=== PATIENT | female | born 1995 | race Caucasian/White ===

== ENCOUNTER 2019-11-09 12:00 | Outpatient (CLI) | payer OTHER ==
[2019-11-09 21:05] LABS: CANDIDA GROUP DNA NEGATIVE (NEGATIVE); CANDIDA KRUSEI DNA NEGATIVE (NEGATIVE); TRICHOMONAS VAGINALIS DNA NEGATIVE (NEGATIVE)
== END 2019-11-09 23:59 | disposition home or self-care (01) ==
LOC: LAB.R 12:00
PROVIDERS: ATTEND Advanced Practice Midwife
DX: N76.0 Acute vaginitis (principal)
CPT/HCPCS: 87661; 87801

== ENCOUNTER 2019-12-20 10:59 | Outpatient (CLI) | payer OTHER ==
--- NOTE | 2019-12-20 14:08 | Ultrasound Report ---
PROCEDURE: OB Detailed Eval INDICATIONS: SCREENING FOR CHROMOSOMAL ANOMALIES OUTSIDE/PRIOR DATING DATA: Last menstrual period (LMP): 08/10/2019. LMP-based estimated date of delivery (MARY): 05/16/2020. First dating scan (date and location): 12/20/2019. Estimated date of delivery (MARY) from first dating scan: 05/14/2020. TECHNIQUE: Real-time scanning was performed of the fetus, with image documentation and biometric measurements. COMPARISON: Prior examination is currently not available for comparison. FINDINGS: General: A single living intrauterine gestation is present. Presentation: Vertex Placenta: Placental position is anterior, without previa. Amniotic fluid index: 13.1 cm, within normal limits for gestational age. Largest pocket 3.6 cm heart rate: 153 beats per minute. Maternal cervical canal: 4.2 cm long; normal length is 2.5 cm or more. biometrics: Biparietal diameter: 4.4 cm 19 weeks 2 days Head circumference: 16.4 cm 19 weeks 1 day Abdominal circumference: 13.1 cm 18 weeks 5 days Femur length: 3.1 cm 18 weeks 5 days Estimated gestational age from initial scan: not applicable. Composite gestational age from present scan: 19 weeks 1 day Estimated weight: 272 g Measurement variability in biometric dating: +/- 10 days from 12-20 weeks gestation, +/- 2 weeks from 20-30 weeks gestation, +/- 3 weeks at 30 weeks gestation or later. Anatomic survey: Neuro: Ventricles are normal at less than 10 mm. Cisterna magna is normal at 3-11 mm. Cerebellum i s normal in size and morphology. Nuchal skin fold: Normal at less than 6 mm between 14 and 20 weeks gestational age. Face: Nose and lips, facial profile are normal. Spine: No evidence for spina bifida. Heart: 4-chambered heart is present, with normal ventricular outflow tracts. Diaphragm: Diaphragm is intact. Stomach: Left-sided stomach is present. Kidneys: No hydronephrosis. Normal is less than 5 mm in 2nd trimester, less than 7 mm in 3rd trimester. Cord: 3 vessel cord has orthotopic insertion. Bladder: Normal in size. Extremities: All 4 extremities are visualized. IMPRESSION: 1. Single live intrauterine with ultrasound gestational age today of 19 weeks 1 day with ul trasound MARY of 05/14/2020. No priors are currently available for comparison. If they become available , an addendum will be issued. 2. Anatomy is within normal limits. Reviewed by: Aleyda Urias MD on 12/20/2019 2:07 PM PDT Approved by: Aleyda Urias MD on 12/20/2019 2:07 PM PDT Station ID: [id number]
== END 2019-12-20 11:00 | disposition home or self-care (01) ==
LOC: DI 10:59
PROVIDERS: ATTEND Advanced Practice Midwife
DX: Z34.90 Encounter for supervision of normal pregnancy, unspecified, unspecified trimester (principal); Z36.0 Encounter for antenatal screening for chromosomal anomalies
CPT/HCPCS: 76811

== ENCOUNTER 2020-02-29 13:47 | Outpatient (CLI) | payer OTHER, MEDICAID ==
[2020-02-29 18:00] LABS: BASOPHILS % (AUTO) 0.2 %; EOSINOPHILS % (AUTO) 0.5 %; HGB - HEMOGLOBIN 11.9 g/dL (12.0-16.0); LYMPHOCYTES # (AUTO) 1.6 10^3/uL (1.5-3.5); LYMPHOCYTES % (AUTO) 19.7 %; MEAN CORPUSCULAR HEMOGLOBIN 28.2 pg (27.0-31.0); MEAN CORPUSCULAR HGB CONC 32.5 g/dL (32.0-36.0); MEAN CORPUSCULAR VOLUME 86.7 fL (81.0-99.0); MONOCYTES # (AUTO) 0.7 10^3/uL (0.0-1.0); MONOCYTES % (AUTO) 8.1 %; NEUTROPHILS # (AUTO) 5.7 10^3/uL (1.5-6.6); NEUTROPHILS % (AUTO) 70.8 %; PLT - PLATELET COUNT 268 10^3/uL (130-450); RED BLOOD COUNT 4.22 10^6/uL (4.20-5.40); RED CELL DISTRIBUTION WIDTH 12.8 % (12.0-15.0)
== END 2020-02-29 23:59 | disposition home or self-care (01) ==
LOC: LAB.WCP 13:47
PROVIDERS: ATTEND Nurse Practitioner Obstetrics & Gynecology
DX: Z36.89 Encounter for other specified antenatal screening (principal)
CPT/HCPCS: 36415; 82950; 85025

== ENCOUNTER 2020-04-25 08:00 | Outpatient (CLI) | payer OTHER, MEDICAID | END 2020-04-25 23:59 | disposition home or self-care (01) | LOC: LAB.R 08:00 | PROVIDERS: ATTEND Nurse Practitioner Obstetrics & Gynecology | DX: Z36.85 Encounter for antenatal screening for Streptococcus B (principal) | CPT/HCPCS: 87797 ==

== ENCOUNTER 2020-05-20 23:37 | Inpatient (IN) | payer OTHER, MEDICAID ==
[2020-05-21] MEDS ORDERED: PROMETHAZINE 25 MG/1 ML VIAL IM STA (01:32)
[2020-05-21] MEDS ORDERED: MORPHINE 10 MG/ML VIAL IM ONE (01:33)
[2020-05-21 06:11] LABS: BASOPHILS % (AUTO) 0.1 %; EOSINOPHILS % (AUTO) 0.1 %; HCT - HEMATOCRIT 34.7 % (37.0-47.0); HGB - HEMOGLOBIN 11.4 g/dL (12.0-16.0); LYMPHOCYTES # (AUTO) 1.3 10^3/uL (1.5-3.5); LYMPHOCYTES % (AUTO) 10.6 %; MEAN CORPUSCULAR HEMOGLOBIN 27.2 pg (27.0-31.0); MEAN CORPUSCULAR HGB CONC 32.9 g/dL (32.0-36.0); MEAN CORPUSCULAR VOLUME 82.8 fL (81.0-99.0); MEAN PLATELET VOLUME 11.1 fL (7.9-10.8); MONOCYTES # (AUTO) 0.6 10^3/uL (0.0-1.0); MONOCYTES % (AUTO) 4.6 %; NEUTROPHILS # (AUTO) 10.1 10^3/uL (1.5-6.6); NEUTROPHILS % (AUTO) 83.5 %; PLT - PLATELET COUNT 246 10^3/uL (130-450); RED BLOOD COUNT 4.19 10^6/uL (4.20-5.40); RED CELL DISTRIBUTION WIDTH 13.9 % (12.0-15.0); WHITE BLOOD COUNT 12.1 x10^3/uL (4.8-10.8)
[2020-05-21] MEDS ORDERED: OXYTOCIN/SODIUM CHLORIDE 500 ML IV PRN (06:58)
[2020-05-21] MEDS ORDERED: miSOPROStoL 200 MCG TABLET BC PRN (06:58)
[2020-05-21] MEDS ORDERED: CARBOPROST TROMETHAMINE 250 MCG/ML AMP IM PRN (06:58)
[2020-05-21] MEDS ORDERED: TRANEXAMIC ACID IN NACL 1,000 MG/100 ML BAG IV PRN (06:58)
[2020-05-21] MEDS ORDERED: METOCLOPRAMIDE 10 MG/2 ML VIAL IVP PRN ×2 (06:58→14:52)
[2020-05-21] MEDS ORDERED: METHYLERGONOVINE 0.2 MG/ML VIAL IM PRN (06:58)
[2020-05-21] MEDS ORDERED: OXYTOCIN 10 UNIT/ML VIAL IM PRN (06:58)
[2020-05-21] MEDS ORDERED: fentaNYL 100 MCG/2 ML VIAL IVP PRN (06:58)
[2020-05-21] MEDS ORDERED: ONDANSETRON 4 MG/2 ML VIAL IVP PRN ×2 (06:58→14:52)
[2020-05-21] MEDS ORDERED: SODIUM CHLORIDE FLUSH 0.9% 10 ML SYRINGE IVP PRN (06:58)
[2020-05-21] MEDS ORDERED: LIDOCAINE-MPF 1% 30 ML VIAL ID PRN (06:58)
--- NOTE | 2020-05-21 06:58 | HISTORY & PHYSICAL EXAMINATION ---
Admit History - Visit Reason Visit Reason: Contractions - : 1 Parity: 0 Premature: 0 Ectopic: 0 : 0 Care: positive: Other (W after transfer of care from [facility] at 13wks) Risk/History: positive: None Complications This : positive: None Smoking Status: Former smoker - Mother's Labs Mother's Blood Type: positive: A Mother's RH: positive: Positive GBS: positive: Group B Step Negative Rubella Status: positive: Immune - Other Maternal History Other Maternal History: -25yo at 40.5wks gestation who presents to Labor and Delivery for pre- induction cervical ripening/for complaints of contractions -Reports movement -Denies ctx/VB/LOF - care with [facility] which has been adequate, after transfer of care from [facility] at 13wks - Complications *None -Dating Criteria * Initial U/S: 10.1wks c/w LMP for MARY 05/16/2020 -OB Hx *G1: current -Medications * vitamin-daily -Allergies *NKDA -Medical History *Non contributory -Surgical History *Rosalia Teeth extraction (2016) -Family History *PGM- DM *Mother- HTN, hx SD <65yo *Father- SD <55yo -Social History *Non contributory - Labs, Immunizations, and Findings Initial U/S: 10.1wks c/w LMP for MARY 05/16/2020 A pos/Rubella immune VZV immune Gentic testing: IS wnl; CF neg FAS 12/20/2019 WNL. Anterior placenta, no previa. 3VC. DARIEN WNL. Size c/w dating. Glucola 112 TDAP 03/06/2019 FLU: 12/07/2019 GBS NEG @ 37.0wks HSV: denies self and partner Breast pump Rx : provided MOD: . FOB: Tom; It's a GIRL- Carlos!; ; desires to keep placenta for encapsulation after delivery (has chain machine operator set up to collect) pp contraception: was on OCPs before-still unsure PAP: 05/20/2019, wnl -SVE per RN 2.5/90/-1/soft/mid/intact (this is a change from initial SVE which was 1cm) -Vertex by digital exam and leopolds -EFW by john 7.5-8# -FHTs per flowsheet -Assessment *25yo at 40.5wks gestation in spontaneous early active labor * Heart Tones- Category I -Plan *Admit to L&D *Monitoring- Intermittent per protocol *Comfort measures available- position changes, whirlpool tub, fentanyl, and epidural per maternal preference *Diet/Activity- per maternal preference *Anticipate Meds/Allgy - Allergies Allergies/Adverse Reactions: Allergies Allergy/AdvReac Type Severity Reaction Status Date / Time No Known Drug Allergies Allergy Verified 05/21/20 01:54 Review of Systems - All Other Systems All Other Systems: reports: Reviewed and negative Physical - Abdominal Exam Vital Signs: Temp Pulse Resp BP Pulse Ox 36.8 C 70 18 110/51 L 99 05/21/20 05:15 05/21/20 05:15 05/21/20 05:15 05/21/20 05:15 05/21/20 05:15 Contraction Frequency (min/apart): 3-5min Contraction Intensity: positive: Moderate Uterine Resting Tone: positive: Soft - Monitoring Heart Rate Baseline: 125 Strip Review: positive: Category I (moderate variability, [id number], no decels) - Presentation Presentation: positive: Vertex (by digital exam) - Vaginal Exam Membranes: positive: Membranes intact Dilation (in cm): 2.5 Effacement (%): 90 Station: positive: -1 Cervical Position: positive: Midposition Plan for Labor - Plan For Labor I expect patient to be DC'd or transferred within 96 hours.: Yes
[2020-05-21] MEDS ORDERED: ACETAMINOPHEN 325 MG TABLET PO SCH (07:00)
--- NOTE | 2020-05-21 09:04 | PROVIDER PROGRESS NOTE ---
Labor Progress Note - Uterine Monitoring Uterine Monitoring Mode: positive: External toco Contraction Frequency (min/apart): intermittent Contraction Intensity: positive: Mild Uterine Resting Tone: positive: Soft - Monitoring Monitor Mode: positive: External ultrasound Heart Rate Baseline: 145 Heart Rate Variability: positive: Moderate (6-25 bmp) Accelerations: positive: Present, 15x15 Decelerations: positive: None Strip Review: positive: Category I - Labor Progress Note Labor Progress Note/Additional Text: S: Breathing through contractions. Feels confident that she will desire an epidural for pain management but is coping well at this time. States the erici helped. She desires to eat a little breakfast at this time. supportive at the bedside. O: Contractions palpate mild intermittently, A: 25yo @ 40.5wks gestation FHR Category I GBS neg Early labor P: Continue expectant management Intermittent monitoring Piedad PRN. Nitrous oxide. Epidural per maternal request. Repeat SVE 4hrs from last or sooner PRN Anticipate .
--- NOTE | 2020-05-21 11:45 | ANESTHESIA ---
Pre-Anesthesia VS, & Labs - Diagnosis labor - Procedure labor epidural Vital Signs: Temp Pulse Resp BP Pulse Ox 36.8 C 68 20 113/69 99 05/21/20 07:59 05/21/20 07:59 05/21/20 07:59 05/21/20 07:59 05/21/20 05:15 Height: 5 ft 5 in Weight (kg): 108.953 kg Body Mass Index: 39.9 BMI Classification: Obese - NPO Other (clears) - Is Patient ?: Yes - Lab Results Current Lab Results: Laboratory Tests 05/21/20 05:45: Blood Type A POSITIVE, Antibody Screen NEGATIVE 05/21/20 05:45: WBC 12.1 H, RBC 4.19 L, Hgb 11.4 L, Hct 34.7 L, MCV 82.8, MCH 27.2, MCHC 32.9, RDW 13.9, Plt Count 246, MPV 11.1 H, Neut # (Auto) 10.1 H, Ly mph # (Auto) 1.3 L, [place] # (Auto) 0.6, Eos # (Auto) 0.0, Baso # (Auto) 0.0, Absolute Nucleated RBC 0.00, Nucleated RBC % 0.0 Fish Bones: 05/21/20 05:45 Home Medications and Allergies Active Medications Acetaminophen (Acetaminophen 325 Mg Tablet) 650 mg PO Q6H CLARI Carboprost Tromethamine (Carboprost Tromethamine 250 Mcg/Ml Amp) 250 mcg IM Q15M PRN PRN Reason: Step 4: Hemorrhage protocol Stop: 05/26/20 06:59 Fentanyl (Fentanyl 100 Mcg/2 Ml Vial) 50 mcg IVP Q1H PRN PRN Reason: PAIN Lactated Ringer's (Lr) 1,000 mls @ 150 mls/hr IV .Q6H40M CLARI Oxytocin/Sodium Chloride (Pitocin/Sodium Chloride) 500 mls @ 999 mls/hr IV PRN PRN; Protocol PRN Reason: POST- HEMORR PREVENTION Stop: 05/26/20 06:59 Tranexamic Acid (Tranexamic 1,000 Mg/100ml-Nacl) 1,000 mg in 100 mls @ 600 mls/hr IV .ONCE PRN PRN Reason: EBL >1200mL and within 3hr Stop: 05/26/20 06:59 Lidocaine HCl (Lidocaine-Mpf 1% 30 Ml Vial) 30 ml ID .ONCE PRN PRN Reason: PERINEAL REPAIR Stop: 05/26/20 06:59 Methylergonovine Maleate (Methylergonovine 0.2 Mg/Ml Vial) 0.2 mg IM .ONCE PRN PRN Reason: Step 2: Hemorrhage protocol Stop: 05/26/20 06:59 Metoclopramide HCl (Metoclopramide 10 Mg/2 Ml Vial) 10 mg IVP Q6H PRN PRN Reason: Nausea / Vomiting Misoprostol (Misoprostol 200 Mcg Tablet) 800 mcg BC .ONCE PRN PRN Reason: Step 3: Hemorrhage protocol Stop: 05/26/20 06:59 Ondansetron HCl (Ondansetron 4 Mg/2 Ml Vial) 4 mg IVP Q4H PRN PRN Reason: Nausea / Vomiting Oxytocin (Oxytocin 10 Unit/Ml Vial) 10 unit IM .ONCE PRN PRN Reason: Step one: If no IV access Stop: 05/26/20 06:59 Sodium Chloride (Sodium Chloride Flush 0.9% 10 Ml Syringe) 10 ml IVP PRN PRN PRN Reason: NEEDED PER PROVIDER ORDERS Allergies/Adverse Reactions: Allergies Allergy/AdvReac Type Severity Reaction Status Date / Time No Known Drug Allergies Allergy Verified 05/21/20 01:54 Anes History & Medical History - Anesthetic History Anesthesia Complications: reports: No previous complications - Medical History Cardiovascular: reports: None Pulmonary: reports: None Gastrointestinal: reports: None Smoking Status: Former smoker History of Cancer?: No - Obstetrical History : 1 Parity: 0 Events: positive: None Complications: positive: None Exam General: Alert Dental: WNL Mouth Opening: Greater than 4 Fingerbreadths Mallampati classification: II Cardiovascular: Regular rate Mental/Cognitive Status: Alert/Oriented X3 Plan Anesthesia Type: Epidural Consent for Procedure(s) Verified and Reviewed: Yes Code Status: Attempt Resuscitation ASA classification: 2-Mild systemic disease Is this case an emergency?: No
[2020-05-21] MEDS: LACTATED RINGERS 1,000 ML IV SCH ×2 (14:05→20:49)
[2020-05-21] MEDS ORDERED: ROPIVACAINE 0.2% 200 MG/100 ML BAG EP ONE (14:20)
[2020-05-21] MEDS ORDERED: NALBUPHINE 10 MG/ML AMP IVP PRN (14:52)
[2020-05-21] MEDS ORDERED: ROPIVACAINE 0.2% 200 MG/100 ML BAG EP PRN (14:52)
[2020-05-21] MEDS ORDERED: diphenhydrAMINE INJ 50 MG/ML VIAL IVP PRN (14:52)
[2020-05-21] MEDS ORDERED: ePHEDrine 50 MG/ML VIAL IVP PRN (14:52)
[2020-05-21] MEDS ORDERED: NALOXONE 0.4 MG/ML VIAL IVP PRN (14:52)
--- NOTE | 2020-05-21 16:02 | PROVIDER PROGRESS NOTE ---
Labor Progress Note - Uterine Monitoring Uterine Monitoring Mode: positive: External toco Contraction Frequency (min/apart): difficult to assess due to poor tracing Contraction Intensity: positive: Moderate Uterine Resting Tone: positive: Soft - Monitoring Monitor Mode: positive: External ultrasound Heart Rate Baseline: 130 Heart Rate Variability: positive: Moderate (6-25 bmp) Accelerations: positive: Present, 15x15 Decelerations: positive: None Strip Review: positive: Category I - Vaginal Exam Dilation (in cm): 5 Effacement (%): 100 Station: -1 Cervical Position: Midposition - Labor Progress Note Labor Progress Note/Additional Text: S: Comfortable with epidural on right side. Feeling tired due to sleeping very little last night. Partner supportive at the bedside. O: FHR baseline 130, moderate variability, + accels, no decels Contractions difficult to assess via poor tocometry tracing. Pt body habitus making tracing difficult at this time. SVE 5/100/-1. AROM small amount of light meconium stained amniotic fluid A: 25yo @ 40.5wks gestation GBS neg FHR Category I Active labor P: Continue expectant management. Continuous monitoring. Maintain adequate pain control with epidural Encouraged position changes in bed on peanut ball. Anticipate . Pt verbalized understanding and agrees to above plan. She denies further questions or concerns at this time.
[2020-05-21] MEDS ORDERED: OXYTOCIN/SODIUM CHLORIDE 500 ML IV SCH (20:25)
[2020-05-22] MEDS ORDERED: WITCH HAZEL/GLYCERIN 1 PAD TOP PRN (02:21)
[2020-05-22] MEDS ORDERED: HYDROCORTISONE 1% CREAM 28 GM TUBE PR PRN (02:21)
--- NOTE | 2020-05-22 02:26 | DELIVERY NOTE ---
Delivery Note - Labor Labor: positive: Augmented by ARM, Augmented by oxytocin - Delivery Method Delivery Method: positive: Spontaneous vaginal delivery - Presentation Presentation: positive: Vertex, Compound, CHANDLER - left occiput anterior - Nuchal Cord Nuchal Cord: positive: None - Amniotic Fluid Description Amniotic Fluid Description: positive: Light meconium - Episiotomy Type Episiotomy Type: positive: None - Laceration Laceration: positive: 1st degree, Vaginal - Suture Suture Type: positive: Vicryl Suture Size: positive: 2-0 - Delivery Outcome Delivery Outcome: positive: Livebirth - [place] : positive: Placed in direct skin contact with mother, Suctioned, Bulb syringe, Cathether, Stimulated, Warmed, [place] used, Warmer used, Other [place] sex: positive: Female - Cord Cord: positive: 3 vessels - Estimated Blood Loss Estimated Blood Loss (in cc): 250 - Post Delivery Events Post Delivery Events: positive: No post delivery events - Delivery Comments (Free Text/Narrative) Delivery Comments (Free Text/Narrative): Labor: This 25yo @ 40.5wks gestation by LMP c/w 10.1wk U/S who presented to [facility] on 05/21/2020 with c/o contractions. SVE 90/-1 and vertex with repeat SVE in 1 hr 2.5/-1. Patient very anxious and desires to stay for early labor. Patient was managed expectantly during early labor. FHR Category I throughout. Normal labor course. Epidural placed per maternal request. AROM occurred at 1522 and was noted to be a small amount of light meconium stained amniotic fluid. body recall instructor linecasting machine keyboard operator notified and presence requested at time of delivery secondary to meconium stained amniotic fluid. Pt noted to have slightly elevated temperature to 99.9 degrees Celsius. Pt remained afebrile and FHR Category I with no evidence of distress or tachycardia. Pt augmented with pitocin with a maximum infusion rate of 6mU/mL. Pt temperature decreased to 99.6 degrees Celsius. Pt progressed to c/c/0 @ 2252. : of viable female on 05/21/20 @ 2355. No nuchal cord. Right compound hand. The was placed on maternal abdomen, stimulated and dried. Poor tone noted with no cry despite stimulation. Umbilical cord doubly clamped by CNM and cut by FOB. moved to infant warmer and care handed to linecasting machine keyboard operator. Apgars 4/7/8 at 1, 5, and 10 minutes respectively. 3VC. Pitocin administered via IV for hemostasis. Cord blood was obtained. Fundal massage and gentle cord traction applied for active management of the third stage. Placenta delivered spontaneously and intact at 2359. EBL 250mL. Fourth stage: Uterine fundus firm and there is no excessive bleeding. The perineum, vagina, and cervix were inspected and found to have 1st degree perineal laceration which was repaired using a 2-[address]-1 needle in standard fashion and under sterile conditions. Vaginal examination following repair was done. Tissues well approximated. At 0015 the patient was noted to have a temperature of 101.5 degree Celsius. She was given 1000mg PO tylenol and fever resolved. being transferred via air to higher level facility with a NICU and is under the direct care of the present linecasting machine keyboard operator.
[2020-05-22] MEDS ORDERED: ACETAMINOPHEN 325 MG TABLET PO SCH (03:00)
[2020-05-22] MEDS ORDERED: ACETAMINOPHEN 500 MG TABLET PO SCH (03:00)
[2020-05-22] MEDS: IBUPROFEN 800 MG TABLET PO SCH ×2 (04:12→11:49)
[2020-05-22] MEDS ORDERED: DOCUSATE SODIUM 100 MG CAPSULE PO SCH (09:00)
--- NOTE | 2020-05-22 09:55 | PROVIDER PROGRESS NOTE ---
Subjective - Subjective Subjective: FINAL PROGRESS NOTE: S: Patient strongly desires to be discharged so she can travel to [facility] to be with her baby. Her partner is on his way there ahead of her to be able to be with their baby. She recently received report from [facility] that baby is stable and seems to be doing very well on high flow oxygen. Pt states she is feeling well other than just wanting to be with her baby. Her bleeding has decreased and is light. Her pain is well controlled with oral medications. She has been able to pump some colostrum which she has saved. Her mom is supportive at the bedside. O: BP 116/71, T 36.7, HR 80, RR 18. COVID-19 test received - NEGATIVE Temperature elevated to 101.5 initially after delivery and was treated with IV tylenol and resolved. She has remained afebrile since that time. Heart RRR w/o M/G/R, lungs CTAB, abdomen soft and nontender with fundus firm at U, perineum intact, light lochia rubra, bilateral LE's trace edema. A: 25yo -->P1 PPD#1 s/p 05/21/2020 Normal recovery P: Discharge at 12hrs so patient can be with her baby at [facility]. Reviewed pp warning s/sx and precautions and when to present. Pt has emergency contact information. Encouraged continuation of PNV while . Continue ibuprofen and tylenol OTC PRN pain. Pt verbalized understanding and agrees to above plan. She denies further questions or concerns at this time. Objective - Vital Signs/Intake & Output Vital Signs: Vital Signs x48h Temp Pulse Resp BP Pulse Ox 05/22/20 08:59 36.7 C 80 18 116/71 100 05/22/20 04:17 36.5 C 88 19 115/67 100 Intake & Output: Intake & Output 05/19/20 05/20/20 05/21/20 05/22/20 23:59 23:59 23:59 23:59 Intake Total 1891.972 3743.000 Output Total 900 650 Balance 557.652 6924.000 - Lab Results Fish Bones: 05/21/20 05:45 Other Labs: Lab Results x24hrs 05/21/20 Range/Units 02:30 Coronavirus (PCR) NEGATIVE
--- NOTE | 2020-05-22 09:56 | Discharge Plan ---
Discharge Plan Problem Reviewed?: Yes Disposition: Home, Self Care Condition: Good Diet: Regular Activity Restrictions: No Restrictions Shower Restrictions: No Driving Restrictions: No Weight Bearing: Full Weight No Smoking: If you smoke, Please STOP! Call for help. Follow-up with: Fay Cheema CNM, ARNP [Provider Admit Priv/Credential] -
--- NOTE | 2020-05-22 10:58 | DISCHARGE SUMMARY ---
Physician: TYLOR Contreras DATE OF ADMISSION: 05/21/2020 DATE OF DISCHARGE: 05/22/2020 DIAGNOSES ON ADMISSION 1. A 25-year-old G2, P0-0-1-0 at 40.5 weeks' gestation. 2. Early labor. 3. Group B Streptococcus negative. DIAGNOSES ON DISCHARGE 1. A 25-year-old G2, P1-0-1-1, status post spontaneous vaginal delivery on 05/21/2020. 2. Normal recovery. 3. Infant transferred to higher level of care facility for evaluation. BRIEF HISTORY: She is a patient of [facility], who presented on 05/21/2020 with complaints of contractions. The patient progressed from 1 cm dilated, 90% effaced, -1 station to 2-3 cm dilated, 90% effaced, -1 station in vertex position. She was admitted per her request for expectant management. heart rate was noted to be category 1. Artificial rupture of membranes was noted to be a small amount of light meconium-stained amniotic fluid, and the on-call qa analyst was notified to be present at the time of delivery secondarily. Epidural placed per maternal request. Patient was noted to have a slightly elevated temperature to 99.9 degrees Celsius at which time pitocin was initiated for labor augmentation and the maximum infusion rate was 6 milliunits per mL. Patient progressed to spontaneously deliver a viable female infant on 05/21/2020 at 2355. The was noted to have poor tone and lack of cry. moved to warmer and care handed to on-call qa analyst, who was present. Apgars were 4, 7, and 8 at 1, 5, and 10 minutes respectively. The patient had a first-degree perineal laceration that was repaired in standard fashion under sterile conditions. EBL 250 mL. Due to lack of improvement over time in status the was transferred to a higher level of care facility with a NICU via helicopter. The patient has been doing well in her own course. She is ambulating and tolerating a regular diet. She is urinating without difficulty, and her lochia is normal. Her pain is well-controlled with oral medications. Her vital signs have remained stable, and she has remained afebrile following a slightly elevated temperature immediately , which was treated with Tylenol IV and resolved. She will be discharged on day #1 at 12 hours with the intent to travel to [facility] to be with her . Her mother is present and supportive at bedside and plans to provide transportation for her. She has been given instructions to continue taking her vitamin while and to continue taking ibuprofen and Tylenol [id number] as needed for pain management. She intends to follow up with myself at [facility] in 1 week for routine visit or sooner if needed. She has been given precautions to call if she has any worsening fevers, chills, abdominal pain, increased bleeding, or foul-smelling vaginal lochia. Patient states she does have the emergency contact information and phone number. TD: 05/22/2020 10:26 ioana WALTERS
[2020-05-22 11:50] VITALS: BP 112/67
--- NOTE | 2020-05-22 12:45 | Labor Flowsheet ---
Labor Flowsheet Datetime Report Generated by CPN: 05/22/2020 12:44 Datetime: 05/22/2020 11:36 VITAL SIGNS NBP Sys/Annia/Mean (mmHg): 112 : 67 : 77 Pulse: 72 Datetime: 05/22/2020 02:24 Temperature (C): 37.3 Datetime: 05/22/2020 02:00 Stage of : Respirations: 17 PAIN Pain Scale: 2 Pain Relief Measures: Pain Medication Given Datetime: 05/22/2020 01:55 Membranes Ruptured Date/Time: 05/21/2020 15:22 Datetime: 05/22/2020 01:15 Pain Type: Ache Pain Location: Perineum Datetime: 05/22/2020 00:22 Hygiene: Maile Care; Underpad Changed; Peripad Changed; Gown Changed Datetime: 05/22/2020 00:17 Patient Care Comments: repair complete Datetime: 05/22/2020 00:15 Pain Presence: Intermittent MATERNAL ASSESSMENT Level of Consciousness: Alert DTR's/Clonus: DTRs 2+; No Clonus Headache: Denies Breath Sounds, Left: Clear and Equal Breath Sounds, Right: Clear and Equal Nausea/Vomiting: Denies Datetime: 05/21/2020 23:59 MEDICATIONS Pitocin (milliunits): Increased to @ 999 Datetime: 05/21/2020 23:50 Pushing Progress: with Pushing Datetime: 05/21/2020 23:45 UTERINE ACTIVITY Monitor Mode: External Frequency (min): 1-2 Quality: Strong Duration (sec): 50-80 Pattern: Normal: <= 5 Contractions in 10 Minutes Resting Tone (Palpate): Relaxed ASSESSMENT A Monitor Mode: External US FHR Baseline Rate : 140 Variability: Moderate 6-25 bpm Accelerations: 15X15 Decelerations: Variable Category: Category II Datetime: 05/21/2020 23:31 LaborFlag: Labor Datetime: 05/21/2020 23:26 Pushing Position: Pushing Left Side Datetime: 05/21/2020 23:23 Comfort Measures: Coaching Datetime: 05/21/2020 23:17 I/O Interventions: Sam Discontinued Datetime: 05/21/2020 23:11 Stage 2 Comments: bed broken down by CNM Datetime: 05/21/2020 23:10 COMMUNICATION Communication: Provider at Bedside Datetime: 05/21/2020 23:08 STAGE 2 Pushing: Coached on Pushing Datetime: 05/21/2020 23:04 SpO2 (%): 100 Datetime: 05/21/2020 23:03 Vital Sign Comments: axillary Datetime: 05/21/2020 22:58 Provider Notified (Name): A Anette CNM Notification Reason: Status Update Communication Comments: CNM on her way Datetime: 05/21/2020 22:52 VAGINAL EXAM Dilatation (cm): 10.0 Effacement (%): 100 Station: 1 Exam by: Ani Ambrosio RN Vaginal Bleeding: Normal Show Datetime: 05/21/2020 22:50 Pain Coping: Breathing Through Contractions Datetime: 05/21/2020 22:00 FHR Baseline Changes: No Baseline Change Datetime: 05/21/2020 21:57 Patient Position/Activity: Right Lateral Datetime: 05/21/2020 21:33 Comments: audible movement Datetime: 05/21/2020 21:09 Maternal Comments: c/o chills Datetime: 05/21/2020 21:08 Monitor Interventions for FHR: Ultrasound Adjusted Datetime: 05/21/2020 20:49 PATIENT CARE IV/Blood Work: New IV Bag Hung Datetime: 05/21/2020 20:46 Anesthesia Level Check: T8- Ribs Datetime: 05/21/2020 20:39 Medication Comments: verified by Noelle RN Datetime: 05/21/2020 20:36 Pitocin Checklist: At Least 1 Acceleration of 15 bpm x 15 Seconds in 30 Minutes or Adequate Variabi lity; No More than 1 Late Deceleration Occurred in Past 30 Minutes; No More than 2 Variable Decelerat ions > 60 Seconds in Duration and decreasing >60 bpm in 30 minutes; No More than 5 Uterine Contractio ns in 10 Minutes for any 20 Minute Interval; Uterus Palpates Soft between Contractions Datetime: 05/21/2020 20:29 TEACHING Instructional Method: Verbal; Verbalized Understanding Labor/Induction: Interventions Medications: Pitocin Datetime: 05/21/2020 19:52 Monitor Interventions for UA: [place] Adjusted Datetime: 05/21/2020 19:15 RUQ Epigastric Pain: Denies Plan of Care: Plan of Care Discussed Unit Routine: Call Espino; Monitoring Datetime: 05/21/2020 18:30 Contraction Comments: poor tracing d/t maternal positioning, several toco adjustments made. Datetime: 05/21/2020 16:31 Temperature Route: Oral Datetime: 05/21/2020 15:22 Membrane Status: Meconium Membranes Rupture Method: Artificial Amniotic Fluid Color: Light Meconium Amniotic Fluid Amount: Small Amniotic Fluid Odor: Normal Cervix, Consistency: Soft Cervix, Position: Anterior Membrane Comments: AROM Vaginal Exam Comments: AROM Datetime: 05/21/2020 14:38 Epidural Procedure Other: Pump Started Datetime: 05/21/2020 14:23 Epidural Procedure: Test Dose Datetime: 05/21/2020 14:16 Anesthesia Comments: pt using nitrous oxide during epidural placement Datetime: 05/21/2020 14:08 PROCEDURE TIME OUT Procedure Verify: Correct Patient Identity; Accurate Procedure Consent Form; Agreement on Procedure to be Done; Correct Patient Position ANESTHESIA Anesthesia Plans: Epidural Epidural Positioning: Sitting Datetime: 05/21/2020 11:10 Consults: Anesthesia Datetime: 05/21/2020 10:00 Pain Assessment Comments: continues to use nitrous oxide prn
== END 2020-05-22 12:25 | disposition home or self-care (01) | DRG 806 ==
LOC: WFO 23:37 → FBP 23:40 → WFO 05-21 06:57 → FBP 05-21 06:58
PROVIDERS: ADMIT Advanced Practice Midwife; ATTEND Nurse Practitioner Obstetrics & Gynecology
PROC: 10907ZC Drainage of Amniotic Fluid, Therapeutic from Products of Conception, Via Natural or Artificial Opening (ICD-10-PCS; principal; 2020-05-21)
PROC: 10E0XZZ Delivery of Products of Conception, External Approach (ICD-10-PCS; 2020-05-21)
PROC: 0HQ9XZZ Repair Perineum Skin, External Approach (ICD-10-PCS; 2020-05-21)
DX: O70.0 First degree perineal laceration during delivery (principal); O86.4 Pyrexia of unknown origin following delivery; Z37.0 Single live birth; O77.0 Labor and delivery complicated by meconium in amniotic fluid; O32.6XX0 Maternal care for compound presentation, not applicable or unspecified; Z3A.40 40 weeks gestation of pregnancy
CPT/HCPCS: 59025; 85025; 86850; 86900; 86901; 87635; 99213; A9270; J7120

== ENCOUNTER 2020-06-01 08:00 | Outpatient (CLI) | payer OTHER, MEDICAID ==
[2020-06-01 21:24] LABS: BACTERIAL VAGINOSIS DNA POSITIVE (NEGATIVE); CANDIDA GLABRATA DNA NEGATIVE (NEGATIVE); CANDIDA GROUP DNA NEGATIVE (NEGATIVE); CANDIDA KRUSEI DNA NEGATIVE (NEGATIVE); TRICHOMONAS VAGINALIS DNA NEGATIVE (NEGATIVE)
== END 2020-06-01 23:59 | disposition home or self-care (01) ==
LOC: LAB.R 08:00
PROVIDERS: ATTEND Nurse Practitioner Obstetrics & Gynecology
DX: N76.0 Acute vaginitis (principal)
CPT/HCPCS: 87661; 87801